=== PATIENT | male | born 1960 | race Asian ===

== ENCOUNTER 2023-05-14 23:04 | Outpatient (CLI) | payer SELFPAY | END 2023-05-14 23:05 | disposition EMS.NT | LOC: EMS 23:04 | DX: R09.89 Other specified symptoms and signs involving the circulatory and respiratory systems (principal) ==

== ENCOUNTER 2023-05-19 00:10 | Outpatient (CLI) | payer SELFPAY | END 2023-05-19 23:59 | disposition short-term general hospital (02) | LOC: EMS 00:10 | DX: R06.02 Shortness of breath (principal); M54.9 Dorsalgia, unspecified; R05.9 Cough, unspecified; R50.9 Fever, unspecified; R42 Dizziness and giddiness | CPT/HCPCS: A0425; A0427 ==

== ENCOUNTER 2023-06-30 06:40 | Outpatient (CLI) | payer OTHER | END 2023-06-30 23:59 | disposition critical access hospital (66) | LOC: EMS 06:40 | DX: R06.02 Shortness of breath (principal); R06.09 Other forms of dyspnea | CPT/HCPCS: A0425; A0429 ==

== ENCOUNTER 2023-06-30 07:13 | Emergency (ER) | payer OTHER ==
[2023-06-30 08:08] LABS: BASOPHILS % (AUTO) 0.7 %; EOSINOPHILS # (AUTO) 0.2 10^3/uL (0.0-0.7); HCT - HEMATOCRIT 43.3 % (42.0-52.0); HGB - HEMOGLOBIN 14.3 g/dL (14.0-18.0); LYMPHOCYTES # (AUTO) 1.4 10^3/uL (1.5-3.5); LYMPHOCYTES % (AUTO) 25.8 %; MEAN CORPUSCULAR HEMOGLOBIN 29.7 pg (27.0-31.0); MEAN CORPUSCULAR VOLUME 89.8 fL (80.0-94.0); MEAN PLATELET VOLUME 9.9 fL (7.4-11.4); MONOCYTES # (AUTO) 0.3 10^3/uL (0.0-1.0); MONOCYTES % (AUTO) 6.3 %; NEUTROPHILS # (AUTO) 3.4 10^3/uL (1.5-6.6); NEUTROPHILS % (AUTO) 63.6 %; PLT - PLATELET COUNT 217 10^3/uL (130-450); RED BLOOD COUNT 4.82 10^6/uL (4.70-6.10); RED CELL DISTRIBUTION WIDTH 12.4 % (12.0-15.0); WHITE BLOOD COUNT 5.4 x10^3/uL (4.8-10.8)
[2023-06-30 08:24] LABS: ALBUMIN/GLOBULIN RATIO 1.2 (1.0-2.2); BILIRUBIN,TOTAL 1.2 mg/dL (0.2-1.0); CALCIUM 9.1 mg/dL (8.5-10.3); CREATININE 0.8 mg/dL (0.6-1.3); TOTAL PROTEIN 7.4 g/dL (6.4-8.9)
[2023-06-30 08:31] LABS: TROPONIN I HIGH SENSITIVITY 2.9 ng/L (2.3-19.7)
--- NOTE | 2023-06-30 08:47 | XRAY Report ---
PROCEDURE: Chest 1V INDICATIONS: SOA TECHNIQUE: One view of the chest was acquired. COMPARISON: None. FINDINGS: Surgical changes and devices: None. Lungs and pleura: Increased pulmonary vascularity. Mediastinum: Mediastinal contours appear normal. Heart size is enlarged. Bones and chest wall: No suspicious bony lesions. Overlying soft tissues appear unremarkable. IMPRESSION: Increased vascularity suggestive of edema. Reviewed by: Isabel Montalvo MD on 06/30/2023 8:46 AM PST Approved by: Isabel Montalvo MD on 06/30/2023 8:46 AM PST Station ID: [id number]
--- NOTE | 2023-06-30 09:07 | ED Physician Documentation ---
PD HPI DYSPNEA - Stated complaint Stated Complaint: SOA - Chief complaint Chief Complaint: Resp - History obtained from History obtained from: Patient - Additional information Additional information: Patient is a 63-year-old male presenting for evaluation of feeling short of air starting around 2 and half hours ago. Patient states that he was drinking coffee and watching TV when he felt like he could not get a deep breath in. He states that he was able to take a fully deep breath but felt like he had to remind himself to do it. He says this lasted for a few minutes and then he went to take a shower and reports it started to feel the same again. He was recently hospitalized for an RSV infection as well as A-fib. He was started on Pradaxa and metoprolol. He reports that since being on the metoprolol he has had some leg swelling which has improved now that he has decreased the dose of the metoprolol. He has stopped taking the Pradaxa as of a few days ago as he reports it was giving him indigestion and he was needing to sleep upright at night. He is with [facility] and has been in text contact with his PCP through [facility] to discuss adjusting his medications. He denies fever, productive cough, congestion, chest pain, abdominal pain, vomiting or diarrhea. EMS reports stable vital signs. He was able to ambulate from the bathroom back to his hospital bed without any difficulty and states that he currently feels fine but is worried he may have another episode. Review of Systems Constitutional: denies: Fever Cardiac: denies: Chest pain / pressure Respiratory: reports: Dyspnea. denies: Cough GI: denies: Abdominal Pain Musculoskeletal: denies: Extremity pain PD PAST MEDICAL HISTORY - Past Medical History Past Medical History: Yes Cardiovascular: Hypertension, High cholesterol, Atrial fibrillation Endocrine/Autoimmune: Type 2 diabetes - Past Surgical History Past Surgical History: No - Present Medications Home Medications: Ambulatory Orders Medication Instructions Recorded Confirmed Apixaban [Eliquis] 5 mg ORAL BID #60 tablet 06/30/23 - Allergies Allergies/Adverse Reactions: Allergies Allergy/AdvReac Type Severity Reaction Status Date / Time No Known Drug Allergies Allergy Verified 06/30/23 07:40 - Social History Does the pt smoke?: No Smoking Status: Never smoker Does the pt drink ETOH?: Yes Does the pt have substance abuse?: No PD ED PE NORMAL - General General: Alert and oriented X 3, No acute distress, Well developed/nourished - HEENT HEENT: Atraumatic, Moist mucous membranes, Pharynx benign - Neck Neck: Supple, no meningeal sign - Cardiac Cardiac: Strong equal pulses, Other (Irregularly irregular, normal rate) - Respiratory Respiratory: No respiratory distress, Clear bilaterally - Abdomen Abdomen: Normal bowel sounds, Soft, Non tender, Non distended - Derm Derm: Warm and dry - Extremities Extremities: No calf tenderness / cord, Other (No pitting edema) - Neuro Neuro: Alert and oriented X 3, No motor deficit, Normal speech Results - Vitals Vitals: Vital Signs - 24 hr 06/30/23 06/30/23 07:30 09:27 Temperature 36.6 C 36.6 C Heart Rate 88 85 Respiratory 18 18 Rate Blood Pressure 143/83 H 142/81 H O2 Saturation 96 97 Oxygen O2 Source Room air - EKG (time done) 0752 EKG releavant findings:: EKG personally interpreted by author of this note. Relevant findings are: Rate 91, atrial fibrillation, no STEMI, no ST depressions - Labs Labs: Laboratory Tests 06/30/23 06/30/23 06/30/23 07:58 07:58 07:58 WBC 5.4 RBC 4.82 Hgb 14.3 Hct 43.3 MCV 89.8 MCH 29.7 MCHC 33.0 RDW 12.4 Plt Count 217 MPV 9.9 Neut # (Auto) 3.4 Lymph # (Auto) 1.4 L [place] # (Auto) 0.3 Eos # (Auto) 0.2 Baso # (Auto) 0.0 Absolute Nucleated RBC 0.00 Nucleated RBC % 0.0 D-Dimer Sodium 139 Potassium 4.0 Chloride 102 Carbon Dioxide 31 Anion Gap 6.0 BUN 11 Creatinine 0.8 Estimated GFR (MDRD) 98 Glucose 186 H Calcium 9.1 Total Bilirubin 1.2 H AST 13 ALT 19 Alkaline Phosphatase 75 Troponin I High Sens 2.9 B-Natriuretic Peptide 182 H Total Protein 7.4 Albumin 4.0 Globulin 3.4 Albumin/Globulin Ratio 1.2 Lipase 42 06/30/23 07:58 WBC RBC Hgb Hct MCV MCH MCHC RDW Plt Count MPV Neut # (Auto) Lymph # (Auto) [place] # (Auto) Eos # (Auto) Baso # (Auto) Absolute Nucleated RBC Nucleated RBC % D-Dimer < 200.0 L Sodium Potassium Chloride Carbon Dioxide Anion Gap BUN Creatinine Estimated GFR (MDRD) Glucose Calcium Total Bilirubin AST ALT Alkaline Phosphatase Troponin I High Sens B-Natriuretic Peptide Total Protein Albumin Globulin Albumin/Globulin Ratio Lipase PD Medical Decision Making - ED course Complexity details: reviewed results, re-evaluated patient, d/w patient ED course: Patient is a 63-year-old male with a history of A-fib presenting for evaluation of feeling short of air this morning. Upon arrival here he feels back to normal. His vital signs are stable. His lung sounds are clear. His EKG shows that he is in A-fib which is rate controlled. His CBC, chemistry, troponin, D- dimer were obtained and reviewed and without significant abnormalities. Patient did stop taking his Pradaxa few days ago. As his D-dimer is negative I do not think he needs a CT angio to rule out a pulmonary embolism. Chest x-ray is negative for consolidation. Per his [id number] 2 score he should be on an anticoagulant. Discussed alternatives to Pradaxa and he is agreeable to trial of Eliquis after discussion of risks and benefits.He has been ambulatory here without any further symptoms. Clinically does not have significant fluid overload. Discussed need for close follow-up with [facility] PCP as well as cardiology. Patient advised on concerning symptoms to return for. Departure - Departure Disposition: 01 Home, Self Care Clinical Impression: Shortness of breath, Chronic atrial fibrillation Condition: Stable Instructions: ED Afib, ED Dyspnea Shortness of Breath Follow-Up: [facility] [Provider Group] Prescriptions: Apixaban [Eliquis] 5 mg ORAL BID #60 tablet Comments: The exact cause for your episodes of feeling short of breath this morning are unclear but it does seem that you are feeling better. Your vital signs here have been stable. You are in A-fib but which you do have a history of. Your testing does not show signs of a blood clot in your lungs or heart attack. I also do not see signs of pneumonia. Because you have a history of atrial fibrillation you are at increased risk for developing clots which could cause conditions such as a stroke. You should be on a blood thinner. I understand that you have stopped Pradaxa because of some side effects. I am starting you on a different blood thinner called Eliquis and I have sent this prescription to [facility] in [place]. Do not take Pradaxa if you are taking this new blood thinner. I would recommend consulting with your [facility] primary care doctor today and keeping your cardiology appointment for Friday. If at anytime you develop any worsening symptoms please return to the emergency department for reevaluation. Forms: PCP List Discharge Date/Time: 06/30/23 09:31
[2023-06-30 09:34] VITALS: BP 142/81; O2SAT 97
== END 2023-06-30 09:31 | disposition home or self-care (01) ==
LOC: EDUNIT# → ED 07:13
DX: I48.20 Chronic atrial fibrillation, unspecified (principal); I10 Essential (primary) hypertension; Z79.01 Long term (current) use of anticoagulants
CPT/HCPCS: 36415; 80053; 83690; 83880; 84484; 85025; 85379; 93005; 99284

== ENCOUNTER 2023-08-13 10:16 | Outpatient (CLI) | payer MEDICAID ==
[2023-08-13 14:55] LABS: BASOPHILS % (AUTO) 0.7 %; EOSINOPHILS # (AUTO) 0.1 10^3/uL (0.0-0.7); EOSINOPHILS % (AUTO) 1.5 %; HCT - HEMATOCRIT 48.1 % (42.0-52.0); HGB - HEMOGLOBIN 15.7 g/dL (14.0-18.0); LYMPHOCYTES # (AUTO) 2.2 10^3/uL (1.5-3.5); LYMPHOCYTES % (AUTO) 36.4 %; MEAN CORPUSCULAR HEMOGLOBIN 29.1 pg (27.0-31.0); MEAN CORPUSCULAR HGB CONC 32.6 g/dL (32.0-36.0); MEAN CORPUSCULAR VOLUME 89.2 fL (80.0-94.0); MEAN PLATELET VOLUME 10.7 fL (7.4-11.4); MONOCYTES # (AUTO) 0.4 10^3/uL (0.0-1.0); MONOCYTES % (AUTO) 6.9 %; NEUTROPHILS # (AUTO) 3.3 10^3/uL (1.5-6.6); PLT - PLATELET COUNT 241 10^3/uL (130-450); RED BLOOD COUNT 5.39 10^6/uL (4.70-6.10); RED CELL DISTRIBUTION WIDTH 12.7 % (12.0-15.0); WHITE BLOOD COUNT 6.1 x10^3/uL (4.8-10.8)
[2023-08-13 15:33] LABS: ALBUMIN 4.6 g/dL (3.2-5.5); ALBUMIN/GLOBULIN RATIO 1.4 (1.0-2.2); ALKALINE PHOSPHATASE 69 IU/L (42-121); ALT ALANINE AMINOTRANSFERASE 20 IU/L (10-60); AST ASPARTATE AMINOTRANSFERASE 15 IU/L (10-42); BILIRUBIN,TOTAL 1.8 mg/dL (0.2-1.0); BUN - BLOOD UREA NITROGEN 19 mg/dL (6-20); CALCIUM 9.9 mg/dL (8.5-10.3); CARBON DIOXIDE - CO2 34 mmol/L (21-32); CHLORIDE 97 mmol/L (101-111); CHOL/HDL RATIO 4.4 (<5.0); CHOLESTEROL 167 mg/dL; CREATININE 0.9 mg/dL (0.6-1.3); GFR - MDRD 86 (>89); GLUCOSE 223 mg/dL (74-104); HDL CHOLESTEROL 38 mg/dL; LDL CHOLESTEROL,CALCULATED 90 mg/dL; LDL/HDL RATIO 2.4 (<3.6); SODIUM 137 mmol/L (135-145); TOTAL PROTEIN 7.8 g/dL (6.4-8.9); TRIGLYCERIDES 193 mg/dL (48-352); VLDL CHOLESTEROL 39 mg/dL
[2023-08-13 15:37] LABS: THYROID STIMULATING HORMONE 0.38 uIU/mL (0.34-5.60)
[2023-08-13 22:31] LABS: ESTIMATED AVERAGE GLUCOSE 200 mg/dL (70-100); HEMOGLOBIN A1c% 8.6 % (4.27-6.07)
== END 2023-08-13 10:17 | disposition home or self-care (01) ==
LOC: LAB.S 10:16
PROVIDERS: ATTEND Physician Assistant Medical
DX: I10 Essential (primary) hypertension (principal); R73.09 Other abnormal glucose; R39.11 Hesitancy of micturition; I48.91 Unspecified atrial fibrillation
CPT/HCPCS: 36415; 80053; 80061; 83036; 83721; 84153; 84443; 85025

== ENCOUNTER 2023-08-21 11:11 | Outpatient (CLI) | payer MEDICAID ==
--- NOTE | 2023-08-21 14:05 | XRAY Report ---
PROCEDURE: Chest 2V INDICATIONS: PNEUMONIA TECHNIQUE: 2 views of the chest were acquired. COMPARISON: 06/30/2023. FINDINGS: Surgical changes and devices: None. Lungs and pleura: No pleural effusions or pneumothorax. Lungs are clear. Mediastinum: Mediastinal contours appear normal. Heart size is normal. Bones and chest wall: No suspicious bony lesions. Overlying soft tissues appear unremarkable. IMPRESSION: No acute cardiopulmonary process. Reviewed by: Bo Ruffin MD on 08/21/2023 2:03 PM PDT Approved by: Bo Ruffin MD on 08/21/2023 2:03 PM PDT Station ID: [id number]
[2023-08-21 15:12] LABS: BASOPHILS % (AUTO) 0.3 %; EOSINOPHILS # (AUTO) 0.1 10^3/uL (0.0-0.7); EOSINOPHILS % (AUTO) 1.7 %; HGB - HEMOGLOBIN 15.1 g/dL (14.0-18.0); LYMPHOCYTES # (AUTO) 2.8 10^3/uL (1.5-3.5); LYMPHOCYTES % (AUTO) 44.3 %; MEAN CORPUSCULAR HEMOGLOBIN 29.8 pg (27.0-31.0); MEAN CORPUSCULAR HGB CONC 34.3 g/dL (32.0-36.0); MEAN CORPUSCULAR VOLUME 86.8 fL (80.0-94.0); MEAN PLATELET VOLUME 10.2 fL (7.4-11.4); MONOCYTES # (AUTO) 0.4 10^3/uL (0.0-1.0); MONOCYTES % (AUTO) 6.8 %; NEUTROPHILS % (AUTO) 46.7 %; PLT - PLATELET COUNT 248 10^3/uL (130-450); RED BLOOD COUNT 5.07 10^6/uL (4.70-6.10); RED CELL DISTRIBUTION WIDTH 12.6 % (12.0-15.0); WHITE BLOOD COUNT 6.4 x10^3/uL (4.8-10.8)
[2023-08-21 15:23] LABS: INR 1.3 (0.8-1.2); PT - PROTHROMBIN TIME 13.4 secs (9.9-12.6)
[2023-08-21 16:01] LABS: ALBUMIN 4.4 g/dL (3.2-5.5); ALBUMIN/GLOBULIN RATIO 1.3 (1.0-2.2); CALCIUM 9.8 mg/dL (8.5-10.3); CREATININE 0.8 mg/dL (0.6-1.3); MAGNESIUM 1.8 mg/dL (1.7-2.3); POTASSIUM 3.7 mmol/L (3.5-4.5); TOTAL PROTEIN 7.7 g/dL (6.4-8.9)
[2023-08-21 16:11] LABS: THYROID STIMULATING HORMONE 0.39 uIU/mL (0.34-5.60)
== END 2023-08-21 11:12 | disposition home or self-care (01) ==
LOC: DI.S 11:11
PROVIDERS: ATTEND Emergency Medicine
DX: J18.9 Pneumonia, unspecified organism (principal); I48.91 Unspecified atrial fibrillation
CPT/HCPCS: 36415; 80053; 83735; 83880; 84443; 85025; 85610

== ENCOUNTER 2023-10-02 08:00 | Outpatient (CLI) | payer MEDICAID ==
--- NOTE | 2023-10-02 21:31 | XRAY Report ---
PROCEDURE: Chest 2V INDICATIONS: ACUTE CHF TECHNIQUE: 2 views of the chest were acquired. COMPARISON: CXR 08/21/2023, 06/30/2023. FINDINGS: Surgical changes and devices: None. Lungs and pleura: No pleural effusions or pneumothorax. Lungs appear clear. Mediastinum: Mediastinal contours appear normal. Heart size is appears enlarged. Bones and chest wall: No suspicious bony lesions. Overlying soft tissues appear unremarkable. IMPRESSION: No acute cardiopulmonary process demonstrated. Prominent heart size. Reviewed by: Gian Calabrese MD on 10/02/2023 9:29 PM PDT Approved by: Gian Calabrese MD on 10/02/2023 9:29 PM PDT Station ID: [id number]
== END 2023-10-02 23:59 | disposition home or self-care (01) ==
LOC: DI.S 08:00
PROVIDERS: ATTEND Emergency Medicine
DX: I50.43 Acute on chronic combined systolic (congestive) and diastolic (congestive) heart failure (principal)

== ENCOUNTER 2023-10-03 08:58 | Outpatient (CLI) | payer MEDICAID ==
[2023-10-03 15:11] LABS: BASOPHILS % (AUTO) 0.6 %; EOSINOPHILS # (AUTO) 0.2 10^3/uL (0.0-0.7); EOSINOPHILS % (AUTO) 3.2 %; HGB - HEMOGLOBIN 14.8 g/dL (14.0-18.0); LYMPHOCYTES # (AUTO) 2.1 10^3/uL (1.5-3.5); LYMPHOCYTES % (AUTO) 42.2 %; MEAN CORPUSCULAR HEMOGLOBIN 30.5 pg (27.0-31.0); MEAN CORPUSCULAR HGB CONC 33.6 g/dL (32.0-36.0); MEAN CORPUSCULAR VOLUME 90.5 fL (80.0-94.0); MEAN PLATELET VOLUME 10.4 fL (7.4-11.4); MONOCYTES # (AUTO) 0.5 10^3/uL (0.0-1.0); MONOCYTES % (AUTO) 9.9 %; NEUTROPHILS # (AUTO) 2.2 10^3/uL (1.5-6.6); NEUTROPHILS % (AUTO) 43.7 %; PLT - PLATELET COUNT 195 10^3/uL (130-450); RED BLOOD COUNT 4.86 10^6/uL (4.70-6.10); RED CELL DISTRIBUTION WIDTH 12.8 % (12.0-15.0)
[2023-10-03 15:17] LABS: CALCIUM 9.3 mg/dL (8.5-10.3); CREATININE 0.8 mg/dL (0.6-1.3); POTASSIUM 3.8 mmol/L (3.5-4.5)
== END 2023-10-03 08:59 | disposition home or self-care (01) ==
LOC: LAB.S 08:58
PROVIDERS: ATTEND Emergency Medicine
DX: I50.43 Acute on chronic combined systolic (congestive) and diastolic (congestive) heart failure (principal)
CPT/HCPCS: 36415; 80048; 83880; 85025